=== PATIENT | female | born 1980 | race Caucasian/White ===

== ENCOUNTER 2023-01-23 20:34 | Emergency (ER) | payer BC, MEDICAID ==
[~2023-01-23] VITALS: Ht 162.6 cm; Wt 50.0 kg
[2023-01-23 20:55] VITALS: BP 150/92; PULSE 99; RESP 18; O2SAT 98
== END 2023-01-23 23:30 | disposition left against medical advice (07) ==
LOC: ER 20:43
DX: S80.862A Insect bite (nonvenomous), left lower leg, initial encounter (principal); S80.861A Insect bite (nonvenomous), right lower leg, initial encounter; Z53.21 Procedure and treatment not carried out due to patient leaving prior to being seen by health care provider; W57.XXXA Bitten or stung by nonvenomous insect and other nonvenomous arthropods, initial encounter; Y93.89 Activity, other specified; Y92.89 Other specified places as the place of occurrence of the external cause; Y99.8 Other external cause status